=== PATIENT | female | born 1990 | race American Indian/Alaskan Native ===

== ENCOUNTER 2021-03-26 03:38 | Emergency (ER) | payer MEDICAID ==
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
[2021-03-26 06:17] LABS: Basophils % (Auto) 0.5 % (0.0-1.8); Eosinophils % (Auto) 0.3 % (0.0-4.3); Hematocrit 37.2 % (30.3-42.9); Hemoglobin 12.2 gm/dl (10.1-14.3); Lymphocytes # (Auto) 1.1 K/mm3 (1.2-5.4); Lymphocytes % (Auto) 35.6 % (13.4-35.0); Mean Corpuscular HGB Conc 33 % (30-34); Mean Corpuscular Volume 82 fl (79-97); Monocytes # (Auto) 0.3 K/mm3 (0.0-0.8); Monocytes % (Auto) 9.5 % (0.0-7.3); Platelet Count 230 K/mm3 (140-440); Red Blood Count 4.56 M/mm3 (3.65-5.03); Red Cell Distribution Width 19.7 % (13.2-15.2)
[2021-03-26 06:37] LABS: Alanine Aminotransferase 15 units/L (7-56); Albumin 4.6 g/dL (3.9-5); Blood Urea Nitrogen 10 mg/dL (7-17); Calcium 8.8 mg/dL (8.4-10.2); Hemolysis Index 14
[2021-03-26 06:38] LABS: BUN/Creatinine Ratio 17
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
[2021-03-26 09:51] LABS: Bilirubin,Urine NEG (Negative); Blood,Urine NEG (Negative); Color,Urine Yellow (Yellow); Mucus,Urine FEW /HPF
[2021-03-26 09:53] LABS: Benzodiazepines Screen,Urine Negative; Methadone Screen,Urine Negative; Opiate Screen,Urine Negative
[2021-03-26 10:05] LABS: Amphetamine Screen,Urine Positive; Cannabinoid Screen,Urine Positive; Cocaine Screen,Urine Positive
[2021-03-26] MEDS ORDERED: ACETAMINOPHEN 325 MG TAB PO ONE (12:50)
[2021-03-26 13:01] VITALS: BP 131/76
== END 2021-03-26 13:02 | disposition home or self-care (01) ==
LOC: ED 03:38
DX: F19.10 Other psychoactive substance abuse, uncomplicated (principal); F17.200 Nicotine dependence, unspecified, uncomplicated
CPT/HCPCS: 36415; 80053; 80307; 80320; 81001; 82962; 84443; 85025; 87076; 87086; 87186; 99284; G0480